=== PATIENT | male | born 1945 | race Caucasian/White ===

== ENCOUNTER 2016-08-14 13:59 | Emergency (ER) | payer MEDICAID, MEDICARE, OTHER ==
[~2016-08-14 13:59] MED LIST: 1-ME1LIQ PO; BACT800T5 PO; HYDR50TA5 PO; LISI40TA PO
[2016-08-14 14:08] VITALS: BP 114/73; PULSE 70; RESP 20; TEMP 98.2; O2SAT 95
--- NOTE | 2016-08-14 14:31 | PD ---
HPI Chief Complaint: GI Complaint Time Seen by Provider: 14:20 Travel History International Travel<30 days: No Contact w/Intl Traveler<30days: No Traveled to known affect area: No History of Present Illness HPI This patient complains of rectal bleeding. Duration 2 days. Severity of symptoms is mild. He's had some bright red rectal bleeding. Does have history of hemorrhoid issues in the past. He had a colonoscopy within the last year and had 3 polyps removed. Takes no blood thinners. Drinks no alcohol. No prior history of GI bleeding. No alleviating factors. PFSH Past Medical History AAA: Yes (REPAIRED) Hypertension: Yes Past Surgical History Other Surgery: Yes (AAA REPAIR) Social History Alcohol Use: No (quit 25 years ago ) Tobacco Use: No (quit 3 years ago ) Substance Use: No Allergies-Medications (Allergen,Severity, Reaction): Coded Allergies: No Known Allergies (Unverified , 08/14/16) Reported Meds & Prescriptions Reported Meds & Active Scripts Active Reported Furosemide 40 Mg Tab 20 Mg PO DAILY Hydrochlorothiazide 50 Mg Tab 50 Mg PO DAILY Metformin (Metformin HCl) 850 Mg Tab 425 Mg PO BIDPC With meals Lisinopril 40 Mg Tab 40 Mg PO DAILY Atorvastatin (Atorvastatin Calcium) 10 Mg Tab 10 Mg PO HS Januvia (Sitagliptin Phosphate) 50 Mg Tab 50 Mg PO DAILY Amlodipine (Amlodipine Besylate) 10 Mg Tab 10 Mg PO DAILY Review of Systems General / Constitutional: No: Fever Eyes: No: Visual changes HENT: No: Headaches Cardiovascular: No: Chest Pain or Discomfort Respiratory: No: Shortness of Breath Gastrointestinal: Positive: Hematochezia, No: Abdominal Pain Genitourinary: No: Dysuria Musculoskeletal: No: Pain Skin: No Rash Neurologic: No: Weakness Psychiatric: No: Depression Endocrine: No: Polydipsia Hematologic/Lymphatic: No: Easy Bruising Physical Exam Narrative GENERAL: Well-nourished, well-developed patient in no apparent distress. SKIN: Focused skin assessment reveals no rash and nodules. Skin is Warm and dry. HEAD: Atraumatic. Normocephalic. EYES: Pupils equal and round. No scleral icterus. No injection or drainage. ENT: No nasal bleeding or discharge. Mucous membranes pink and moist. NECK: Trachea midline. No JVD. CARDIOVASCULAR: Regular rate and rhythm. No murmur appreciated. RESPIRATORY: No accessory muscle use. Clear to auscultation. Breath sounds equal bilaterally. GASTROINTESTINAL: Abdomen soft, obese, non-tender, nondistended. Hepatic and splenic margins not palpable. MUSCULOSKELETAL: No obvious deformities. No clubbing. No cyanosis. No edema. NEUROLOGICAL: Awake and alert. No obvious cranial nerve deficits. Motor grossly within normal limits. Normal speech. PSYCHIATRIC: Appropriate mood and affect; insight and judgment normal. Rectal: No obvious fissure or external hemorrhoid. There is dried red blood around the anal opening. Data Data Last Documented VS Vital Signs Date Time Temp Pulse Resp B/P Pulse Ox O2 Delivery O2 Flow Rate FiO2 08/14/16 14:08 98.2 70 20 114/73 95 Orders Complete Blood Count With Diff (08/14/16 14:27) Basic Metabolic Panel (Bmp) (08/14/16 14:27) Prothrombin Time / Inr (Pt) (08/14/16 14:27) Act Partial Throm Time (Ptt) (08/14/16 14:27) Iv Access Insert/Monitor (08/14/16 14:27) Labs Laboratory Tests Test 08/14/16 14:37 White Blood Count 7.0 TH/MM3 Red Blood Count 4.66 MIL/MM3 Hemoglobin 14.8 GM/DL Hematocrit 44.3 % Mean Corpuscular Volume 95.1 FL Mean Corpuscular Hemoglobin 31.7 PG Mean Corpuscular Hemoglobin 33.3 % Concent Red Cell Distribution Width 13.1 % Platelet Count 118 TH/MM3 Mean Platelet Volume 9.4 FL Neutrophils (%) (Auto) 54.3 % Lymphocytes (%) (Auto) 28.2 % Monocytes (%) (Auto) 13.8 % Eosinophils (%) (Auto) 2.3 % Basophils (%) (Auto) 1.4 % Neutrophils # (Auto) 3.7 TH/MM3 Lymphocytes # (Auto) 2.0 TH/MM3 Monocytes # (Auto) 1.0 TH/MM3 Eosinophils # (Auto) 0.2 TH/MM3 Basophils # (Auto) 0.1 TH/MM3 CBC Comment DIFF FINAL Differential Comment Prothrombin Time 11.2 SEC Prothromb Time International 1.0 RATIO Ratio Activated Partial 30.8 SEC Thromboplast Time Sodium Level 139 MEQ/L Potassium Level 3.3 MEQ/L Chloride Level 103 MEQ/L Carbon Dioxide Level 28.8 MEQ/L Anion Gap 7 MEQ/L Blood Urea Nitrogen 21 MG/DL Creatinine 1.80 MG/DL Estimat Glomerular Filtration 38 ML/MIN Rate Random Glucose 152 MG/DL Calcium Level 9.4 MG/DL MDM Medical Decision Making Medical Screen Exam Complete: Yes Emergency Medical Condition: Yes Medical Record Reviewed: Yes Differential Diagnosis Diverticular bleeding, arteriovenous malformation, hemorrhoidal bleed, colon cancer Narrative Course I have reviewed the patient's electronic medical record. He was seen here July 2013 for cellulitis IV placed CBC is normal with a hemoglobin of 14.8 Metabolic profile is normal Coagulation studies are normal Patient has rectal bleeding but very stable for outpatient follow-up. He follows with Dr. Phillip and I asked him to call him tomorrow morning for follow- up and return if he worsens Diagnosis Primary Impression: Rectal bleeding Additional Instructions: Follow-up with your colorectal physician Med/Other Pt SpecificInfo: Other Disposition: 01 DISCHARGE HOME Condition: Stable Rich Vallecillo MD August 14, 2016 14:31
[2016-08-14] MEDS ORDERED: HYDR50TA3 PO (14:42)
[2016-08-14] MEDS ORDERED: FURO40TA PO (14:42)
[2016-08-14] MEDS ORDERED: METF850T PO (14:42)
[2016-08-14] MEDS ORDERED: ATOR10TA15 PO (14:42)
[2016-08-14] MEDS ORDERED: LISI40TA PO (14:42)
[2016-08-14] MEDS ORDERED: SITA50 PO (14:42)
[2016-08-14] MEDS ORDERED: AMLO10TA2 PO (14:42)
[2016-08-14 14:43] LABS: AUTOMATED NEUTROPHIL # 3.7 TH/MM3 (1.8-7.7); BASOPHIL # 0.1 TH/MM3 (0-0.2); BASOPHIL % 1.4 % (0.0-2.0); EOSINOPHIL # 0.2 TH/MM3 (0-0.4); EOSINOPHIL % 2.3 % (0.0-4.0); HEMATOCRIT 44.3 % (39.0-51.0); HEMO FLAGS DIFF FINAL; LYMPH % 28.2 % (9.0-44.0); MEAN CELL VOLUME 95.1 FL (80.0-100.0); MEAN CORPUSCULAR HEMOGLOBIN 31.7 PG (27.0-34.0); MEAN CORPUSCULAR HGB CONC 33.3 % (32.0-36.0); MONO % 13.8 % (0.0-8.0); NEUT % 54.3 % (16.0-70.0); PLATELET COUNT 118 TH/MM3 (150-450); RED BLOOD COUNT 4.66 MIL/MM3 (4.50-5.90); RED CELL DISTRIBUTION WIDTH 13.1 % (11.6-17.2)
[2016-08-14 14:50] LABS: POTASSIUM 3.3 MEQ/L (3.5-5.1)
[2016-08-14 14:53] LABS: BICARBONATE 28.8 MEQ/L (21.0-32.0)
[2016-08-14 14:55] LABS: APTT (PATIENT) 30.8 SEC (24.3-30.1); PROTHROMBIN TIME - PATIENT 11.2 SEC (9.8-11.6)
== END 2016-08-14 16:09 | disposition home or self-care (01) ==
LOC: PHED 13:59
DX: K62.5 Hemorrhage of anus and rectum (principal); I10 Essential (primary) hypertension; Z79.899 Other long term (current) drug therapy; Z87.891 Personal history of nicotine dependence
CPT/HCPCS: 80048; 85025; 85610; 85730; 99283

== ENCOUNTER 2017-02-12 15:09 | Emergency (ER) | payer OTHER ==
[~2017-02-12] VITALS: Ht 190.5 cm; Wt 142.2 kg
[~2017-02-12 15:09] MED LIST changes: -1-ME1LIQ PO; +AMLO10TA2 PO; +ATOR10TA15 PO; -BACT800T5 PO; +FURO40TA PO; +HYDR50TA3 PO; -HYDR50TA5 PO; +METF850T PO; +SITA50 PO
[2017-02-12 15:13] VITALS: PULSE 70; RESP 16; TEMP 98; O2SAT 96
[2017-02-12] MEDS ORDERED: XIFA200T4 PO (15:41)
--- NOTE | 2017-02-12 16:21 | PD ---
HPI Chief Complaint: Edema Time Seen by Provider: 16:04 Travel History International Travel<30 days: No Contact w/Intl Traveler<30days: No Traveled to known affect area: No History of Present Illness HPI 71yo M with PMH of cirrhosis here with c/o worsening lower extremity edema since January. Said he was on lasix but was in sepsis in August and was taken off of it but never put back on and swelling has gotten worse. I also noticed an area of erythema on left leg and said that has been there for about 3-4 days. Denies any fever, chest pain, sob, n/v, abdominal pain, recent surgery, recent immobilization, history of DVT, PE. Pt went to his GI physician to follow up and was told to come to ED for leg swelling. PFSH Past Medical History AAA: Yes (REPAIRED) Arthritis: Yes (sciatica) Cancer: Yes (PROSTATE) High Cholesterol: Yes Diabetes: Yes Patient Takes Glucophage: Yes Diminished Hearing: No Gastrointestinal Disorders: Yes (HEMORROIDS) Genitourinary: Yes (mal. neoplasm prostate) Hypertension: Yes Medical other: Yes (CKD, aneurysm ileac artery, fatty liver, thromobocytopenia) Integumentary: Yes (hyperpigmentation) Tetanus Vaccination: Unknown Influenza Vaccination: No Past Surgical History Other Surgery: Yes (AAA REPAIR) Social History Alcohol Use: No (quit 25 years ago ) Tobacco Use: No (quit 3 years ago ) Substance Use: No Allergies-Medications (Allergen,Severity, Reaction): Coded Allergies: No Known Allergies (Unverified Adverse Reaction, Unknown, 02/12/17) Reported Meds & Prescriptions Reported Meds & Active Scripts Active Reported Xifaxan (Rifaximin) 200 Mg Tab 400 Mg PO Q8HR Metformin (Metformin HCl) 850 Mg Tab 425 Mg PO BIDPC With meals Lisinopril 40 Mg Tab 40 Mg PO DAILY Atorvastatin (Atorvastatin Calcium) 10 Mg Tab 10 Mg PO HS Januvia (Sitagliptin Phosphate) 50 Mg Tab 50 Mg PO DAILY Amlodipine (Amlodipine Besylate) 10 Mg Tab 10 Mg PO DAILY Review of Systems Except as stated in HPI: all other systems reviewed are Neg Physical Exam Narrative GENERAL: 71yo M not in distress. SKIN: Focused skin assessment warm/dry. HEAD: Atraumatic. Normocephalic. EYES: Pupils equal and round. No scleral icterus. No injection or drainage. ENT: No nasal bleeding or discharge. Mucous membranes pink and moist. NECK: Trachea midline. No JVD. CARDIOVASCULAR: Regular rate and rhythm. No murmur appreciated. RESPIRATORY: No accessory muscle use. Clear to auscultation. Breath sounds equal bilaterally. GASTROINTESTINAL: Abdomen soft, non-tender, nondistended. MUSCULOSKELETAL: Bilateral lower extremity edema. 6cm by 6cm erythema in medial distal tibia. NEUROLOGICAL: Awake and alert. No obvious cranial nerve deficits. Motor grossly within normal limits. Normal speech. PSYCHIATRIC: Appropriate mood and affect; insight and judgment normal. Data Data Last Documented VS Vital Signs Date Time Temp Pulse Resp B/P (MAP) Pulse Ox O2 Delivery O2 Flow Rate FiO2 02/12/17 15:13 98.0 70 16 96 Orders Orders Complete Blood Count With Diff (02/12/17 16:21) Comprehensive Metabolic Panel (02/12/17 16:21) Lactic Acid Sepsis Protocol (02/12/17 16:21) B-Type Natriuretic Peptide (02/12/17 16:21) Furosemide Inj (Lasix Inj) (02/12/17 17:15) Clindamycin 600 Mg Premix (Cleocin 600 M (02/12/17 17:30) Labs Laboratory Tests Test 02/12/17 16:30 02/12/17 16:35 White Blood Count 6.3 TH/MM3 Red Blood Count 4.43 MIL/MM3 Hemoglobin 14.2 GM/DL Hematocrit 41.9 % Mean Corpuscular Volume 94.6 FL Mean Corpuscular Hemoglobin 32.1 PG Mean Corpuscular Hemoglobin Concent 33.9 % Red Cell Distribution Width 12.9 % Platelet Count 110 TH/MM3 Mean Platelet Volume 11.0 FL Neutrophils (%) (Auto) 53.1 % Lymphocytes (%) (Auto) 29.7 % Monocytes (%) (Auto) 14.2 % Eosinophils (%) (Auto) 2.3 % Basophils (%) (Auto) 0.7 % Neutrophils # (Auto) 3.4 TH/MM3 Lymphocytes # (Auto) 1.9 TH/MM3 Monocytes # (Auto) 0.9 TH/MM3 Eosinophils # (Auto) 0.1 TH/MM3 Basophils # (Auto) 0.0 TH/MM3 CBC Comment DIFF FINAL Differential Comment Blood Urea Nitrogen 15 MG/DL Creatinine 1.30 MG/DL Random Glucose 116 MG/DL Total Protein 7.8 GM/DL Albumin 3.3 GM/DL Calcium Level 8.6 MG/DL Alkaline Phosphatase 122 U/L Aspartate Amino Transf (AST/SGOT) 41 U/L Alanine Aminotransferase (ALT/SGPT) 47 U/L Total Bilirubin 0.5 MG/DL Sodium Level 142 MEQ/L Potassium Level 3.7 MEQ/L Chloride Level 109 MEQ/L Carbon Dioxide Level 24.0 MEQ/L Anion Gap 9 MEQ/L Estimat Glomerular Filtration Rate 55 ML/MIN B-Type Natriuretic Peptide 63 PG/ML Lactic Acid Level 1.7 mmol/L [facility] Medical Decision Making Medical Screen Exam Complete: Yes Emergency Medical Condition: Yes Differential Diagnosis Edema secondary to cirrhosis vs. kidney injury vs. CHF vs. cellulitis Narrative Course 71yo M with cirrhosis here with worsening lower extremity edema since he was off lasix. Pt denies any chest pain or sob. Pt does have an area of erythema on left medial leg for a few days. Pt is nontoxic appearing with no systemic symptoms. Labs reviewed, no leukocytosis. Creatinine normal at 1.30. K: 3.7. AST mildly elevated at 41, Alk phos mildly elevated at 122. BNP 63. Lactic acid normal at 1.7. Vital signs normal. Pt given lasix 40mg IV and clindamycin 600mg IV. Pt instructed to follow up with PMD regarding restarting him on lasix. Pt said he has an appointment in 2 days with his PMD. Return precautions given. Diagnosis Primary Impression: Edema Qualified Codes: R60.9 - Edema, unspecified Additional Impression: Cellulitis Qualified Codes: L03.116 - Cellulitis of left lower limb Patient Instructions: General Instructions Departure Forms: Tests/Procedures Additional Instructions: Please follow up with your primary care physician at your appointment time in 2 days. Return to the ED if symptoms worsen. Med/Other Pt SpecificInfo: Prescription(s) given Scripts Clindamycin (Clindamycin) 300 Mg Cap 300 MG PO Q6H for Infection for 7 Days, #28 CAP 0 Refills Prov: Yamilka Knutson 02/12/17 Disposition: 01 DISCHARGE HOME Condition: Stable KnutsonValeri sepulvedaregina TRACY Feb 12, 2017 16:21
[2017-02-12 16:52] LABS: CHLORIDE 109 MEQ/L (98-107); POTASSIUM 3.7 MEQ/L (3.5-5.1); SODIUM (NA) 142 MEQ/L (136-145)
[2017-02-12 16:56] LABS: ANION GAP 9 MEQ/L (5-15); AUTOMATED NEUTROPHIL # 3.4 TH/MM3 (1.8-7.7); BASOPHIL % 0.7 % (0.0-2.0); BLOOD UREA NITROGEN 15 MG/DL (7-18); EOSINOPHIL # 0.1 TH/MM3 (0-0.4); EOSINOPHIL % 2.3 % (0.0-4.0); HEMATOCRIT 41.9 % (39.0-51.0); HEMO FLAGS DIFF FINAL; LYMPH % 29.7 % (9.0-44.0); LYMPHOCYTE # 1.9 TH/MM3 (1.0-4.8); MEAN CELL VOLUME 94.6 FL (80.0-100.0); MEAN CORPUSCULAR HEMOGLOBIN 32.1 PG (27.0-34.0); MEAN CORPUSCULAR HGB CONC 33.9 % (32.0-36.0); MONO % 14.2 % (0.0-8.0); NEUT % 53.1 % (16.0-70.0); PLATELET COUNT 110 TH/MM3 (150-450); RED BLOOD COUNT 4.43 MIL/MM3 (4.50-5.90); RED CELL DISTRIBUTION WIDTH 12.9 % (11.6-17.2); WHITE BLOOD COUNT 6.3 TH/MM3 (4.0-11.0)
[2017-02-12 16:59] LABS: ALT (GPT) 47 U/L (12-78); AST (GOT) 41 U/L (15-37); GLOMERULAR FILTRATION RATE 55 ML/MIN (>89)
[2017-02-12 17:00] LABS: TOTAL BILIRUBIN ADULT 0.5 MG/DL (0.2-1.0)
[2017-02-12 17:02] LABS: ALKALINE PHOSPHATASE 122 U/L (45-117)
[2017-02-12] MEDS ORDERED: FUROSEMIDE 40 MG/4 ML VIAL IV PUSH ONE (17:15)
[2017-02-12] MEDS ORDERED: CLINDAMYCIN 600 MG PREMIX 50 ML IV ONE (17:30)
[2017-02-12] MEDS ORDERED: CLIN300C5 PO (17:53)
[2017-02-12 19:01] VITALS: BP 128/70; PULSE 72; RESP 18; O2SAT 95
== END 2017-02-12 19:05 | disposition home or self-care (01) ==
LOC: PHED 15:09
DX: R60.9 Edema, unspecified (principal); L03.116 Cellulitis of left lower limb; K74.60 Unspecified cirrhosis of liver; E78.00 Pure hypercholesterolemia, unspecified; I12.9 Hypertensive chronic kidney disease with stage 1 through stage 4 chronic kidney disease, or unspecified chronic kidney disease; N18.9 Chronic kidney disease, unspecified; E11.22 Type 2 diabetes mellitus with diabetic chronic kidney disease; Z86.79 Personal history of other diseases of the circulatory system; Z79.84 Long term (current) use of oral hypoglycemic drugs
CPT/HCPCS: 80053; 83605; 83880; 85025; 96374; 96375; 99284; J1940

== ENCOUNTER 2017-04-26 17:07 | Emergency (ER) | payer OTHER ==
[~2017-04-26] VITALS: Ht 190.5 cm; Wt 140.0 kg
[~2017-04-26 17:07] MED LIST changes: +AUGM500T7 PO; +CLIN300C5 PO; -FURO40TA PO; -HYDR50TA3 PO; +XIFA200T4 PO
[2017-04-26 17:21] VITALS: BP 144/61; PULSE 62; RESP 16; TEMP 97.9; O2SAT 94
[2017-04-26] MEDS ORDERED: KLOR8TAB PO (17:43)
[2017-04-26] MEDS ORDERED: FURO20TA PO (17:43)
[2017-04-26 18:06] LABS: BILIRUBIN, URINE NEG (NEG); BLOOD, URINE LARGE (NEG); GLUCOSE,URINE 1000 OR GREATER mg/dL (NEG); KETONE, URINE NEG (NEG); NITRITE,URINE NEG (NEG); URINE LEUKOCYTE ESTERASE NEG (NEG)
[2017-04-26 18:11] LABS: URINE COLOR AMBER (YELLW/STRAW)
[2017-04-26 18:13] LABS: RBC, URINE INNUM /hpf (0-3); SQUAMOUS EPITHELIAL CELL URINE 0-5 /hpf (0-5)
--- NOTE | 2017-04-26 18:39 | PD ---
HPI Chief Complaint: Complaint Time Seen by Provider: 17:54 Travel History International Travel<30 days: No Contact w/Intl Traveler<30days: No Traveled to known affect area: No History of Present Illness HPI C/O INITERMITTENT HEMATURIA, FOR WEEKS, HAS APPOINTMENT WITH DR NEWTON ON MAY 24 FOR CYSTOSCOPY...PATIENT IS STILL ABLE TO VOID, AND IT IS PAINLESS. PATIENT PRESENTED TO MAKE SURE IT WASN'T RELATED TO A URINARY TRACT INFECTION PFSH Past Medical History AAA: Yes (REPAIRED) Arthritis: Yes (sciatica) Cancer: Yes (PROSTATE) High Cholesterol: Yes Chemotherapy: No (RADIATION ONLY) Diabetes: Yes Patient Takes Glucophage: Yes Diminished Hearing: No Gastrointestinal Disorders: Yes (HEMORROIDS) Genitourinary: Yes (mal. neoplasm prostate) Hypertension: Yes Integumentary: Yes (hyperpigmentation) Past Surgical History Other Surgery: Yes (AAA REPAIR) Social History Alcohol Use: No (quit 25 years ago ) Tobacco Use: No (quit 3 years ago ) Substance Use: No Allergies-Medications (Allergen,Severity, Reaction): Coded Allergies: No Known Allergies (Unverified Adverse Reaction, Unknown, 04/26/17) Reported Meds & Prescriptions Reported Meds & Active Scripts Active Reported Klor-Con 8 (Potassium Chloride) 8 Meq Tab 8 Meq PO DAILY Furosemide 20 Mg Tab 20 Mg PO DAILY Metformin (Metformin HCl) 850 Mg Tab 850 Mg PO BIDPC With meals Lisinopril 40 Mg Tab 40 Mg PO DAILY Atorvastatin (Atorvastatin Calcium) 10 Mg Tab 10 Mg PO HS Amlodipine (Amlodipine Besylate) 10 Mg Tab 10 Mg PO DAILY Review of Systems Except as stated in HPI: all other systems reviewed are Neg General / Constitutional: No: Fever Eyes: No: Visual changes HENT: No: Headaches Cardiovascular: No: Chest Pain or Discomfort Respiratory: No: Shortness of Breath Gastrointestinal: No: Abdominal Pain Genitourinary: Positive: Hematuria Musculoskeletal: No: Pain Skin: No Rash Neurologic: No: Weakness Psychiatric: No: Depression Endocrine: No: Polydipsia Hematologic/Lymphatic: No: Easy Bruising Physical Exam Narrative GENERAL: SKIN: Warm and dry. HEAD: Atraumatic. Normocephalic. EYES: Pupils equal and round. No scleral icterus. No injection or drainage. ENT: No nasal bleeding or discharge. Mucous membranes pink and moist. NECK: Trachea midline. No JVD. CARDIOVASCULAR: Regular rate and rhythm. RESPIRATORY: No accessory muscle use. Clear to auscultation. Breath sounds equal bilaterally. GASTROINTESTINAL: Abdomen soft, non-tender, nondistended. MUSCULOSKELETAL: Extremities without clubbing, cyanosis, or edema. No obvious deformities. NEUROLOGICAL: Awake and alert. No obvious cranial nerve deficits. Motor grossly within normal limits. Five out of 5 muscle strength in the arms and legs. Normal speech. PSYCHIATRIC: Appropriate mood and affect; insight and judgment normal. Data Data Last Documented VS Vital Signs Date Time Temp Pulse Resp B/P (MAP) Pulse Ox O2 Delivery O2 Flow Rate FiO2 04/26/17 17:21 97.9 62 16 144/61 (88) 94 Orders Orders Urinalysis - C+S If Indicated (04/26/17 17:53) Labs Laboratory Tests Test 04/26/17 17:59 Urine Color KRISTOFER Urine Turbidity HAZY Urine pH 5.0 Urine Specific [place] 1.023 Urine Protein TRACE mg/dL Urine Glucose (UA) 1000 OR GREATER mg/dL Urine Ketones NEG mg/dL Urine Occult Blood LARGE Urine Nitrite NEG Urine Bilirubin NEG Urine Leukocyte Esterase NEG Urine RBC INNUM /hpf Urine WBC 3-5 /hpf Urine Squamous Epithelial Cells 0-5 /hpf Microscopic Urinalysis Comment CULT NOT INDICATED MDM Medical Decision Making Medical Screen Exam Complete: Yes Emergency Medical Condition: Yes Medical Record Reviewed: Yes Differential Diagnosis UTI V BLADDER MASS V RENAL MASS V KIDNEY STONE Narrative Course CT ON APR 16, 2017 SHOWS THAT PATIENT HAS :MASSIVE PERIRECTAL VARICES. AORTOILIAC STENT GRAFT INTACT. NO URETHRAL STONES......................UA IS NEG BACTERIA SO HEMATURIA WITHOUT UTI..... Diagnosis Primary Impression: Hematuria Qualified Codes: R31.0 - Gross hematuria Referrals: Sanjay Newton MD Patient Instructions: General Instructions, Hematuria (ED) Disposition: 01 DISCHARGE HOME Condition: Stable Hayder Inman MD Apr 26, 2017 18:39
== END 2017-04-26 18:50 | disposition home or self-care (01) ==
LOC: PHED 17:07
DX: R31.0 Gross hematuria (principal); I86.8 Varicose veins of other specified sites; E11.9 Type 2 diabetes mellitus without complications; I10 Essential (primary) hypertension; E78.00 Pure hypercholesterolemia, unspecified; Z79.84 Long term (current) use of oral hypoglycemic drugs; Z87.39 Personal history of other diseases of the musculoskeletal system and connective tissue; Z85.46 Personal history of malignant neoplasm of prostate; Z87.19 Personal history of other diseases of the digestive system
CPT/HCPCS: 81001; 99284